=== PATIENT | male | born 1990 | race Asian ===

== ENCOUNTER 2025-05-21 09:12 | Outpatient (CLI) | payer OTHER, SELFPAY ==
[2025-05-21 12:45] LABS: Hemoglobin A1C 5.3 % (<5.7)
[2025-05-21 12:48] LABS: Abs Immature Grans 0.01 10^3/uL (0.0-0.06); HCT 40.5 % (40.0-50.0); HGB 12.4 g/dL (13.5-17.5); Immature Grans % 0.3 %; MCH 20.9 pg (27.0-33.0); MCHC 30.6 % (32.0-36.0); MCV 68 fL (80-95); RBC 5.93 10^6/uL (4.36-5.78); RDW 15.1 % (11.8-14.1); RDW-SD 36.5 fL; WBC 3.47 10^3/uL (4.4-10.8)
[2025-05-21 13:01] LABS: Iron 99 ug/dL (65-175); Total Iron Binding Capacity 364 ug/dL (250-450)
[2025-05-21 13:23] LABS: ALT 31 U/L (16-63); AST 9 U/L (15-37); Albumin 4.0 g/dL (3.4-5.0); Alkaline Phosphatase 100 U/L (46-116); Anion Gap 7.5 mmol/L (3-11); BUN 13 mg/dL (7-18); Bilirubin, Total 0.7 mg/dL (0.2-1.0); CO2 28.5 mmol/L (21.0-32.0); Calcium 9.1 mg/dL (8.5-10.1); Chloride 103 mmol/L (98-107); Estimated GFR 113.51 (mL/min/1.73m2); Ferritin 30 ng/mL (26-388); Glucose 90 mg/dL (74-106); Potassium 4.4 mmol/L (3.5-5.1); Sodium 139 mmol/L (136-145); TSH (W/Ref FT4) 1.68 uIU/mL (0.36-3.74); Total Protein 7.3 g/dL (6.4-8.2); Vitamin B12 178 pg/mL (193-986)
[2025-05-21 13:35] LABS: Anisocytosis 2+; Platelet Count 191 10^3/uL (130-400)
[2025-05-24 09:40] LABS: Transferrin 275 mg/dL (201-352)
[2025-05-24 13:46] LABS: Lyme Ab w Rflx to Lyme Confirm Negative (Negative)
[2025-05-24 15:04] LABS: B. miyamotoi PCR Negative (Negative); Babesia divergens/MO-1 Negative (Negative); Ehrlichia muris eauclairensis Negative (Negative)
== END 2025-05-21 09:13 | disposition home or self-care (01) ==
PROVIDERS: PCP Nurse Practitioner Family; Referring Provider Nurse Practitioner Family; Visit Provider Nurse Practitioner Family
DX: D64.9 Anemia, unspecified (principal); D56.9 Thalassemia, unspecified; E53.8 Deficiency of other specified B group vitamins; Z13.1 Encounter for screening for diabetes mellitus; E03.9 Hypothyroidism, unspecified; M25.50 Pain in unspecified joint
CPT/HCPCS: 36415; 80053; 87798; 82607; 82728; 83020; 83036; 83540; 83550; 84443; 84466; 85025; 86618